=== PATIENT | female | born 1995 | race Caucasian/White ===

== ENCOUNTER 2018-06-15 19:03 | Emergency (ER) | payer OTHER ==
[2018-06-15 19:54] LABS: PLATELET COUNT 178 10^3/uL (150-400)
--- NOTE | 2018-06-15 20:31 | EDPHY ---
H & P Stated Complaint: bumps on legs for 3days - Personal History LMP (Females 10-55): Extended Cycle BCP/Inj Current Tetanus/Diphtheria Vaccine: Yes Current Tetanus Diphtheria and Acellular Pertussis (TDAP): Yes - Medical/Surgical History Hx Asthma: No Hx Chronic Respiratory Disease: No Hx Diabetes: No Hx Cardiac Disease: No Hx Renal Disease: No Hx Cirrhosis: No Hx Alcoholism: No Hx HIV/AIDS: No Hx Splenectomy or Spleen Trauma: No Other PMH: denies - Social History Smoking Status: Never smoked Time Seen by Provider: 06/15/18 19:08 HPI/ROS: Chief complaint: Bumps on legs History of present illness: This is a 22-year-old female who presents to the emergency department for evaluation of bumps on her legs. She has nose them develop over the last 2 weeks. They are mildly uncomfortable. She denies precipitating factors. She denies alleviating factors. She states over the last few days she has generally felt run down with no specific complaint. She denies other associated signs or symptoms including no fevers or cold symptoms, no chest pain, no trouble breathing, no nausea vomiting or diarrhea. She did go to [facility] as she is a college student who recommended observation. Review of systems: A 10 point review of systems was obtained and other than described above was negative (Juve Sarmiento) - Physical Exam Exam: General Appearance: Alert, no distress. Eyes: Pupils equal and round no pallor or injection. ENT, Mouth: Mucous membranes moist. Respiratory: There are no retractions, lungs are clear to auscultation. Cardiovascular: Regular rate and rhythm. Gastrointestinal: Abdomen is soft and non tender, no masses, bowel sounds normal. Neurological: Alert and oriented x4. Strength and sensation intact and symmetrical. Skin: Patient has multiple erythematous and slightly raised nodules to her legs that are slightly tender. No pustules. No vesicles. Musculoskeletal: Neck is supple non tender. Extremities are symmetrical, full range of motion. Psychiatric: Patient is oriented X 3, there is no agitation. (Juve Sarmiento) Constitutional: Initial Vital Signs Temperature (C) 36.9 C 06/15/18 19:04 Heart Rate 96 06/15/18 19:04 Respiratory Rate 16 06/15/18 19:04 Blood Pressure 118/97 H 06/15/18 19:04 O2 Sat (%) 97 06/15/18 19:04 O2 Delivery Mode Room Air Allergies/Adverse Reactions: No Known Allergies Allergy (Unverified 06/15/18 19:07) Home Medications: Medication Instructions Recorded NK [No Known Home Meds] 06/15/18 Medical Decision Making ED Course/Re-evaluation: Patient is seen in conjunction with my secondary supervising physician Dr. Ny Vásquez. Patient presents for rash to her legs. She is nontoxic. Vital signs are stable. Blood studies are unremarkable. I discussed the multiple etiologies of these. I do believe she can follow up on an outpatient basis for further evaluation and care. I do believe this is likely erythema and a dose some. Home care is discussed including the use of NSAIDs. Return precautions are given. (Juve Sarmiento) I have evaluated and participated in the management of this patient. My co- signature indicates that I have reviewed this chart and that I agree with the findings and the plan of care as documented. My personal history and physical findings include: Healthy 22-year-old who presents with tender red spots on both legs. She has had these for the past 2 weeks. She has not otherwise been ill. On examination she is awake and alert. Lungs are clear to auscultation. Heart is regular rate and rhythm. Abdomen is soft and nontender. She has scattered circular erythematous lesions on both legs. They are tender to the touch. They are blanching. No excoriations. No target lesions. No vesicles. No other skin lesions. I think that these are consistent with erythema nodosum. (Ny Vásquez) Differential Diagnosis: Included but not limited to contact dermatitis, allergic reaction, vasculitis, erythema in a dose some, cellulitis (Juve Sarmiento) - Data Points Laboratory Results: Laboratory Results 06/15/18 19:39 06/15/18 19:39 06/15/18 Unknown Group A Strep DNA NEGATIVE (NEGATIVE) Departure - Departure Disposition: Home, Routine, Self-Care Clinical Impression: Rash Condition: Good Instructions: Acute Rash (ED) Additional Instructions: Follow-up with a primary care doctor for continued evaluation and care Please discuss with them the potential of this being erythema nodosum Use ibuprofen 600 mg 3 times a day for symptom control If symptoms worsen or new symptoms develop return to the emergency department for recheck Referrals: NONE *PRIMARY CARE P,. [Primary Care Provider] - As per Instructions Meng Leigh MD [Medical Doctor] - As per Instructions
[2018-06-15 20:58] VITALS: BP 123/73
== END 2018-06-15 20:58 | disposition home or self-care (01) ==
DX: R21 Rash and other nonspecific skin eruption (principal)